=== PATIENT | female | born 1960 | race Caucasian/White ===

== ENCOUNTER 2017-02-11 01:14 | Emergency (ER) | payer BC ==
[2017-02-11 01:29] VITALS: TEMP 97.3
[2017-02-11] MEDS ORDERED: SODIUM CHLORIDE 0.9% 1000ML 1,000 ML IVS ONE ×2 (01:36→07:24)
[2017-02-11] MEDS ORDERED: NALOXONE HCL INJ 0.4 MG/ML VIAL IV ONE (01:40)
--- NOTE | 2017-02-11 01:40 | ED.PDOC ---
History of Present Illness - General Source: RN notes reviewed, Vital Signs reviewed, police, EMS Exam Limitations: intoxication - History of Present Illness Initial Comments: Patient was pulled over by a [facility] and found to have an altered mental status. She was suppose to be driving home to [place] but was in [place] and could not answer any questions. Would just say "huh". [facility] put her in the back of the [employer] car and she passed out. Family reports she does not drink alcohol but does take medication for her back 4X/day. Patient is currently unresponsive and unable to answer any questions. Timing/Duration: unknown Severity: severe Improving Factors: nothing Worsening Factors: nothing <Emi Power - Last Filed: 02/11/17 06:48> <Juanpablo Trotter - Last Filed: 02/11/17 11:11> - General Chief Complaint: Neuro Symptoms/Deficits Stated Complaint: altered mental status Time Seen by Provider: 02/11/17 01:35 - History of Present Illness Allergies/Adverse Reactions: Allergies UNOBTAINABLE Allergy (Verified 02/11/17 01:29) Home Medications: Ambulatory Orders Acetaminophen-Aspirin Buffered [Excedrin Back & Body] 1 tab PO PRN 02/11/17 Baclofen 10 mg PO QID 02/11/17 Bupropion HCl [Wellbutrin Sr] 150 mg PO BID 02/11/17 Diphenhydramine HCl [Eql Allergy Relief] 25 mg PO PRN 02/11/17 Gabapentin 600 mg PO QID 02/11/17 Meloxicam [Mobic] 7.5 mg PO BID 02/11/17 Trazodone HCl 100 mg PO BEDTIME 02/11/17 Review of Systems - Review of Systems Unable to Obtain Due To: clinical condition - passed out/unresponsive <Emi Power - Last Filed: 02/11/17 06:48> Past Medical History (General) - Patient Medical History Hx Seizures: No Hx Stroke: No Hx Dementia: No Hx Asthma: No Hx of COPD: No Hx Cardiac Disorders: No Hx Congestive Heart Failure: No Hx Pacemaker: No Hx Hypertension: No Hx Thyroid Disease: No Hx Diabetes: No Hx Gastroesophageal Reflux: No Hx Renal Disease: No Hx Cancer: No Hx of HIV: No Hx Hepatitis C: No Hx MRSA: No Surgical History: noncontributory - Vaccination History Hx Tetanus, Diphtheria Vaccination: - unknown Hx Influenza Vaccination: - unknown Hx Pneumococcal Vaccination: - unknown Immunizations Up to Date: - unknown - Social History Hx Alcohol Use: Yes Hx Substance Use: - unknown Hx Substance Use Treatment: - unknown Hx Depression: Yes <Emi Power - Last Filed: 02/11/17 06:48> Family Medical History - Family History Mother Family History: Unknown Living Status: Unknown <Emi Power - Last Filed: 02/11/17 06:48> Physical Exam - Physical Exam General Appearance: Unkempt Respiratory: chest non-tender, lungs clear, normal breath sounds, no respiratory distress, no accessory muscle use, other - snoring and requiring O2 to maintain oxygen saturation Cardiovascular/Chest: normal peripheral pulses, regular rate, rhythm, no edema, no gallop, no JVD, no murmur Peripheral Pulses: radial,right: 2+, radial,left: 2+, dorsalis pedis,right: 2+, dorsalis pedis,left: 2+ Gastrointestinal/Abdominal: normal bowel sounds, non tender, soft, no organomegaly, no pulsatile mass Extremities Exam: non-tender, normal range of motion, no evidence of injury, no edema Mental Status: unresponsive Skin Exam: normal color, warm/dry <Emi Power - Last Filed: 02/11/17 06:48> Progress - Progress Progress: 02/11/17 01:50 Attempted 0.4mg of Narcan w/o response. 02/11/17 02:13 Patient labs are unremarkable except for elevated BUN & Creatinine. Negative drug screen and EtoH level. Review of medications in her bag show Trazadone and Gabapentin as the only sedating prescription medications. She also has a bottle of Benadryl. Awaiting Head CT. 02/11/17 06:48 Patient has continued to sleep. No distress. Vital signs stable. Vital Signs 02/11/17 02/11/17 02/11/17 01:15 01:21 01:47 Temperature 97.3 F L Pulse Rate 97 H Pulse Rate [ 97 H 95 H monitor] Respiratory 16 16 Rate Blood Pressure 92/62 [Left Arm] O2 Sat by Pulse 97 96 Oximetry 02/11/17 02/11/17 02/11/17 01:59 02:26 03:15 Temperature Pulse Rate Pulse Rate [ 94 H 100 H 98 H monitor] Respiratory 12 15 15 Rate Blood Pressure 110/78 119/79 95/64 [Left Arm] O2 Sat by Pulse 94 L 100 100 Oximetry 02/11/17 02/11/17 02/11/17 04:22 05:00 06:00 Temperature Pulse Rate Pulse Rate [ 96 H 95 H 88 monitor] Respiratory 15 12 11 L Rate Blood Pressure 103/67 115/69 101/67 [Left Arm] O2 Sat by Pulse 95 94 L 94 L Oximetry - Results/Orders Results/Orders: Laboratory Tests 02/11/17 02/11/17 02/11/17 00:45 00:45 00:45 WBC 9.6 RBC 4.32 Hgb 13.1 Hct 39.8 MCV 92.0 MCH 30.2 MCHC 32.8 L RDW 13.4 Plt Count 245 MPV 9.3 Absolute Neuts (auto) 7.20 H Absolute Lymphs (auto) 1.20 Absolute Monos (auto) 0.80 Absolute Eos (auto) 0.30 Absolute Basos (auto) 0.10 Neutrophils % 75.0 Lymphocytes % 12.7 L Monocytes % 7.9 Eosinophils % 3.7 Basophils % 0.7 Sodium 142 Potassium 4.4 Chloride 108 Carbon Dioxide 24 Anion Gap 14.4 BUN 38 H Creatinine 1.85 H BUN/Creatinine Ratio 20.5 H Random Glucose 117 H Serum Osmolality 293.2 Calcium 9.7 Total Bilirubin 0.4 AST 18 ALT 13 Alkaline Phosphatase 105 Serum Total Protein 7.0 Albumin 4.4 Globulin 2.6 Albumin/Globulin Ratio 1.7 Urine Color Urine Appearance Urine pH Ur Specific [place] Urine Protein Urine Glucose (UA) Urine Ketones Urine Blood Urine Nitrite Urine Bilirubin Urine Urobilinogen Ur Leukocyte Esterase Urine RBC Urine WBC Ur Epithelial Cells Urine Bacteria Hyaline Casts Urine Mucus Urine Opiates Screen Urine Barbiturates Ur Phencyclidine Scrn U Amphetamin/Meth Scrn U Benzodiazepines Scrn U Cocaine Metab Screen U Cannabinoids Screen Ethyl Alcohol < 5.40 02/11/17 02/11/17 00:45 01:50 WBC RBC Hgb Hct MCV MCH MCHC RDW Plt Count MPV Absolute Neuts (auto) Absolute Lymphs (auto) Absolute Monos (auto) Absolute Eos (auto) Absolute Basos (auto) Neutrophils % Lymphocytes % Monocytes % Eosinophils % Basophils % Sodium Potassium Chloride Carbon Dioxide Anion Gap BUN Creatinine BUN/Creatinine Ratio Random Glucose Serum Osmolality Calcium Total Bilirubin AST ALT Alkaline Phosphatase Serum Total Protein Albumin Globulin Albumin/Globulin Ratio Urine Color Yellow Urine Appearance Clear Urine pH 5.5 Ur Specific [place] 1.020 Urine Protein Negative Urine Glucose (UA) Negative Urine Ketones Trace Urine Blood Negative Urine Nitrite Negative Urine Bilirubin Negative Urine Urobilinogen 0.2 Ur Leukocyte Esterase Negative Urine RBC 0 Urine WBC 0-1 Ur Epithelial Cells 0 Urine Bacteria Rare Hyaline Casts 1-3 Urine Mucus Moderate Urine Opiates Screen Negative Urine Barbiturates Negative Ur Phencyclidine Scrn Negative U Amphetamin/Meth Scrn Negative U Benzodiazepines Scrn Negative U Cocaine Metab Screen Negative U Cannabinoids Screen Negative Ethyl Alcohol - EKG/XRAY/CT CT Ordered: Yes - Head: No acute changes per Radiologist. <Emi Power - Last Filed: 02/11/17 06:48> - Progress Progress: 02/11/17 09:58 She stated felt depressed lots of things going on in her family but denies to elaborate also doesnt want to respond if she has thought of harming herself or others;[facility] evaluation will be done;before she goes home to [place], [place] her residence.Stated she might have taken too much of her medications when ask after being pulled over by [facility] dept and brought here. 02/11/17 10:03 02/11/17 11:08 Seen by [facility] and has appointment given <Juanpablo Trotter R - Last Filed: 02/11/17 11:11> Departure <Emi Power - Last Filed: 02/11/17 06:48> - Departure Time of Disposition: 11:07 <Juanpablo Trotter R - Last Filed: 02/11/17 11:11> - Departure Clinical Impression: Altered awareness, transient, Anxiety and depression, Renal insufficiency Overdose of drug Qualifiers: Encounter type: initial encounter Injury intent: undetermined intent Qualified Code(s): T50.904A - Poisoning by unspecified drugs, medicaments and biological substances, undetermined, initial encounter Disposition: Discharge to Home or Self Care Departure Forms: ED Discharge - Pt. Copy, Patient Portal Self Enrollment Home Medications: Ambulatory Orders Acetaminophen-Aspirin Buffered [Excedrin Back & Body] 1 tab PO PRN 02/11/17 Baclofen 10 mg PO QID 02/11/17 Bupropion HCl [Wellbutrin Sr] 150 mg PO BID 02/11/17 Diphenhydramine HCl [Eql Allergy Relief] 25 mg PO PRN 02/11/17 Gabapentin 600 mg PO QID 02/11/17 Meloxicam [Mobic] 7.5 mg PO BID 02/11/17 Trazodone HCl 100 mg PO BEDTIME 02/11/17 Additional Instructions: Keep appointment with [facility] as scheduled;Continue with home meds DIRECTED
[2017-02-11] MEDS ORDERED: NALOXONE HCL INJ 0.4 MG/ML VIAL ONE (01:42)
--- NOTE | 2017-02-11 02:44 | CT ---
EXAM: CT head without contrast. INDICATION: Altered mental status. TECHNIQUE: Contiguous axial CT images of the brain. Intravenous contrast: Absent. DLP 773 mGy-cm. This exam was performed according to our departmental dose-optimization program, which includes automated exposure control, adjustment of the mA and/or kV according to patient size and/or use of iterative reconstruction technique. COMPARISON: None. FINDINGS: Subcutaneous: Unremarkable. No acute intracranial hemorrhage. No midline shift. No mass effect. Ventricles: No hydrocephalus. Ashraf-white differentiation preserved. Paranasal sinuses/mastoid air cells: Visualized portions are aerated. Bones/orbits: Visualized portions are unremarkable. IMPRESSION: 1. No CT evidence of acute intracranial hemorrhage. Electronically signed by: Jose Armando aMx MD 02/11/2017 2:43 AM CDT Workstation: [id number]
[2017-02-11 11:45] VITALS: BP 134/98; O2SAT 98
== END 2017-02-11 11:20 | disposition home or self-care (01) ==
LOC: ER 01:14
DX: T50.904A Poisoning by unspecified drugs, medicaments and biological substances, undetermined, initial encounter (principal); R40.4 Transient alteration of awareness; F41.8 Other specified anxiety disorders; N28.9 Disorder of kidney and ureter, unspecified; Z79.899 Other long term (current) drug therapy
CPT/HCPCS: 36415; 70450; 80053; 80307; 80320; 81001; 85025; J2310; J7030

== ENCOUNTER → 2020-07-25 | Outpatient (CLI) | payer OTHER ==
--- NOTE | 2020-07-25 16:32 | RAD ---
EXAM DESCRIPTION: Hip,Right 2 Views CLINICAL HISTORY: pain in right hip COMPARISON: January 12, 2019 Findings: 2 views of the right hip show severe narrowing of the joint space with flattening of the weightbearing articular surface of the femoral head which is more pronounced than previous exam. Subcortical cystic and sclerotic changes at the articular interface with uncovertebral osteophyte of the femoral head are again seen. IMPRESSION: Severe advanced osteoarthritic changes of the right hip are worsened from previous exam with mild flattening of the way periarticular surface of the femoral head now seen. Electronically signed by: Cameron Martin MD 07/25/2020 4:30 PM [facility]
--- NOTE | 2020-07-25 16:33 | RAD ---
EXAM DESCRIPTION: Pelvis,2 or More Views CLINICAL HISTORY: 60 years Female, pain in right hip. unilateral COMPARISON: January 12, 2019 Findings: One view(s)/radiograph(s) Obliteration of the right hip joint space, with subchondral sclerosis and cyst formation. Bulky right hip osteophytosis. No acute fracture or dislocation. No focal soft tissue swelling. Hypertrophic change at the pubic symphysis. IMPRESSION: Advanced right hip arthropathy, progressed from the comparison examination. Electronically signed by: Scott Calloway MD 07/25/2020 4:32 PM [facility]
== END ==
LOC: RAD 10:06
PROVIDERS: ATTEND Orthopaedic Surgery
DX: M16.11 Unilateral primary osteoarthritis, right hip (principal)